=== PATIENT | female | born 1980 | race African-American/Black ===

== ENCOUNTER 2020-02-26 12:20 | Emergency (ER) | payer OTHER ==
[2020-02-26] MEDS ORDERED: SODIUM CHLORIDE 0.9% 1,000 ML IV STA (12:22)
[2020-02-26 12:24] LABS: Glucose,Whole Blood 128 mg/dL (75-99)
[2020-02-26 12:31] VITALS: RESP 18
--- NOTE | 2020-02-26 12:39 | ED ---
General Adult HPI - General Stated complaint: Seizure Time Seen by Provider: 02/26/20 12:22 Source: patient, EMS, RN notes reviewed, old records reviewed Mode of arrival: EMS Limitations: no limitations - History of Present Illness Initial comments: 40-year-old female history of hypertension presenting with suspected new onset seizure. Patient was found in her car on the side of the road with witnessed seizure activity. There was no reported accident or trauma. Patient was postictal upon EMS arrival. There is no reported history of seizure disorder. Apparently the patient has not been eating or drinking well over the past 24 hours. She's been unable to take her hypertension medication. Patient is alert and oriented 2 with time my initial evaluation. She has no complaints, no headache, no chest pain or dyspnea, no focal numbness or weakness. - Related Data Previous Rx's Medication Instructions Recorded amLODIPine [Norvasc] 5 mg PO DAILY #30 tab 02/26/20 Allergies Allergy/AdvReac Type Severity Reaction Status Date / Time lisinopril Allergy Rash/Hives Verified 02/26/20 12:32 Review of Systems ROS Statement: Those systems with pertinent positive or pertinent negative responses have been documented in the HPI. ROS Other: All systems not noted in ROS Statement are negative. Past Medical History Past Medical History: Hypertension Smoking Status: Never smoker Past Alcohol Use History: Occasional Past Drug Use History: None Reported General Exam Limitations: no limitations General appearance: alert, in no apparent distress Head exam: Present: atraumatic, normocephalic Eye exam: Present: normal appearance, PERRL ENT exam: Present: mucous membranes dry Neck exam: Present: normal inspection. Absent: tenderness, meningismus Respiratory exam: Present: normal lung sounds bilaterally. Absent: respiratory distress, wheezes Cardiovascular Exam: Present: normal rhythm, tachycardia GI/Abdominal exam: Present: soft. Absent: distended, tenderness, guarding, rebound Extremities exam: Present: normal inspection, normal capillary refill. Absent: pedal edema Neurological exam: Present: alert, CN II-XII intact. Absent: oriented X3, motor sensory deficit Psychiatric exam: Present: normal affect, normal mood Skin exam: Present: warm, dry, intact. Absent: cyanosis, diaphoretic Course Vital Signs 02/26/20 02/26/20 02/26/20 12:22 12:31 13:31 Temperature 98.5 F Pulse Rate 129 H 98 Respiratory 18 18 18 Rate Blood Pressure 209/157 188/129 O2 Sat by Pulse 98 98 Oximetry - Reevaluation(s) Reevaluation #1: 02/26/20 14:37 40-year-old female presenting with suspected new onset seizure. Head CT performed, showing chronic ischemic changes no acute process, no intracranial hemorrhage or mass effect. She has a normal CBC, she has a CO2 13 consistent with acidosis likely from seizure. She has an elevated bilirubin at 1.7 and a transaminitis. She states she has had some nausea and vomiting over the past 48 hours rate, she denies abdominal pain. Ultrasound has been ordered these results are pending. She does admit to alcohol consumption although she states she only drinks approximately 2 days weekly. She denies being a daily drinker. Ultrasound is pending, care is signed out to Dr. Valadez at shift change awaiting ultrasound results and reevaluation. Reevaluation #2: 02/26/20 15:06 Patient reevaluated, resting comfortably with no complaints, alert and oriented 3. EKG Findings - EKG Comments: EKG Findings:: EKG: Sinus tachycardia, rate of 124, CO interval 136, QRS duration [address] segment elevation Medical Decision Making - Medical Decision Making 40-year-old female presenting with new onset seizure, hypertension. Patient has not been taking her antihypertensive medications secondary to lack of insurance. Workup reveals a head CT which is negative for intracranial hemorrhage. She has a CO2 of 13 consistent with acidosis secondary to seizure. She has an elevated bilirubin, AST and ALT with no abdominal pain or tenderness. Ultrasound is performed in the emergency department. Given the patient's uncontrolled high blood pressure, new onset seizure would prefer this patient be admitted. She does not want to be admitted. She does not live in town. She is accompanied by her significant other, both are informed of the risks and both wish that the patient be discharged with outpatient follow-up. I will prescribe this patient Norvas for her blood pr essure. They will follow up with her neurologist in their area. She's given seizure precautions, she will not drive. She will monitor her blood pressure at home. Again I prefer this patient be admitted but she refuses admission and wishes to be discharged. - Lab Data Result diagrams: 02/26/20 12:33 02/26/20 12:33 Lab Results 02/26/20 02/26/20 02/26/20 Range/Units 12:22 12:33 12:33 WBC 5.9 (3.8-10.6) k/uL RBC 3.88 (3.80-5.40) m/uL Hgb 12.4 (11.4-16.0) gm/dL Hct 39.9 (34.0-46.0) % MCV 103.0 H (80.0-100.0) fL MCH 32.0 (25.0-35.0) pg MCHC 31.1 (31.0-37.0) g/dL RDW 14.7 (11.5-15.5) % Plt Count 114 L (150-450) k/uL Neutrophils % 63 % Lymphocytes % 27 % Monocytes % 7 % Eosinophils % 1 % Basophils % 1 % Neutrophils # 3.7 (1.3-7.7) k/uL Lymphocytes # 1.6 (1.0-4.8) k/uL Monocytes # 0.4 (0-1.0) k/uL Eosinophils # 0.0 (0-0.7) k/uL Basophils # 0.1 (0-0.2) k/uL Macrocytosis Slight Sodium (137-145) mmol/L Potassium (3.5-5.1) mmol/L Chloride (98-107) mmol/L Carbon Dioxide (22-30) mmol/L Anion Gap mmol/L BUN (7-17) mg/dL Creatinine (0.52-1.04) mg/dL Est GFR (CKD-EPI)AfAm (>60 ml/min/1.73 sqM) Est GFR (CKD-EPI)NonAf (>60 ml/min/1.73 sqM) Glucose (74-99) mg/dL POC Glucose (mg/dL) 128 H (75-99) mg/dL POC Glu Roll Up Machine Operator ID Atilio Kwok Calcium (8.4-10.2) mg/dL Total Bilirubin (0.2-1.3) mg/dL AST (14-36) U/L ALT (4-34) U/L Alkaline Phosphatase (38-126) U/L Total Protein (6.3-8.2) g/dL Albumin (3.5-5.0) g/dL Urine Color Yellow Urine Appearance Clear (Clear) Urine pH 6.0 (5.0-8.0) Ur Specific Casey 1.005 (1.001-1.035) Urine Protein 3+ (Negative) Ur Protein Confirm RELAY WORKER Urine Glucose (UA) Negative (Negative) Urine Ketones 1+ (Negative) Urine Blood Small (Negative) Urine Nitrite Negative (Negative) Urine Bilirubin Negative (Negative) Urine Urobilinogen <2.0 (<2.0) mg/dL Ur Leukocyte Esterase Negative (Negative) Urine RBC 1 (0-5) /hpf Urine WBC 16 H (0-5) /hpf Amorphous Sediment Rare H (None) /hpf Urine Bacteria Many H (None) /hpf Urine Mucus Occasional H (None) /hpf Urine Opiates Screen Not Detected (NotDetected) Ur Oxycodone Screen Not Detected (NotDetected) Urine Methadone Screen Not Detected (NotDetected) Ur Propoxyphene Screen Not Detected (NotDetected) Ur Barbiturates Screen Not Detected (NotDetected) U Tricyclic Antidepress Not Detected (NotDetected) Ur Phencyclidine Scrn Not Detected (NotDetected) Ur Amphetamines Screen Not Detected (NotDetected) U Methamphetamines Scrn Not Detected (NotDetected) U Benzodiazepines Scrn Not Detected (NotDetected) Urine Cocaine Screen Not Detected (NotDetected) U Marijuana (THC) Screen Not Detected (NotDetected) Serum Alcohol mg/dL 02/26/20 Range/Units 12:33 WBC (3.8-10.6) k/uL RBC (3.80-5.40) m/uL Hgb (11.4-16.0) gm/dL Hct (34.0-46.0) % MCV (80.0-100.0) fL MCH (25.0-35.0) pg MCHC (31.0-37.0) g/dL RDW (11.5-15.5) % Plt Count (150-450) k/uL Neutrophils % % Lymphocytes % % Monocytes % % Eosinophils % % Basophils % % Neutrophils # (1.3-7.7) k/uL Lymphocytes # (1.0-4.8) k/uL Monocytes # (0-1.0) k/uL Eosinophils # (0-0.7) k/uL Basophils # (0-0.2) k/uL Macrocytosis Sodium 137 (137-145) mmol/L Potassium 3.7 (3.5-5.1) mmol/L Chloride 101 (98-107) mmol/L Carbon Dioxide 13 L (22-30) mmol/L Anion Gap 23 mmol/L BUN 8 (7-17) mg/dL Creatinine 0.69 (0.52-1.04) mg/dL Est GFR (CKD-EPI)AfAm >90 (>60 ml/min/1.73 sqM) Est GFR (CKD-EPI)NonAf >90 (>60 ml/min/1.73 sqM) Glucose 153 H (74-99) mg/dL POC Glucose (mg/dL) (75-99) mg/dL POC Glu Roll Up Machine Operator ID Calcium 8.1 L (8.4-10.2) mg/dL Total Bilirubin 1.7 H (0.2-1.3) mg/dL AST 197 H (14-36) U/L ALT 47 H (4-34) U/L Alkaline Phosphatase 94 (38-126) U/L Total Protein 8.5 H (6.3-8.2) g/dL Albumin 4.6 (3.5-5.0) g/dL Urine Color Urine Appearance (Clear) Urine pH (5.0-8.0) Ur Specific Casey (1.001-1.035) Urine Protein (Negative) Ur Protein Confirm Urine Glucose (UA) (Negative) Urine Ketones (Negative) Urine Blood (Negative) Urine Nitrite (Negative) Urine Bilirubin (Negative) Urine Urobilinogen (<2.0) mg/dL Ur Leukocyte Esterase (Negative) Urine RBC (0-5) /hpf Urine WBC (0-5) /hpf Amorphous Sediment (None) /hpf Urine Bacteria (None) /hpf Urine Mucus (None) /hpf Urine Opiates Screen (NotDetected) Ur Oxycodone Screen (NotDetected) Urine Methadone Screen (NotDetected) Ur Propoxyphene Screen (NotDetected) Ur Barbiturates Screen (NotDetected) U Tricyclic Antidepress (NotDetected) Ur Phencyclidine Scrn (NotDetected) Ur Amphetamines Screen (NotDetected) U Methamphetamines Scrn (NotDetected) U Benzodiazepines Scrn (NotDetected) Urine Cocaine Screen (NotDetected) U Marijuana (THC) Screen (NotDetected) Serum Alcohol <10 mg/dL Disposition Clinical Impression: New onset seizure, Hyperbilirubinemia, Hypertension Disposition: HOME SELF-CARE Condition: Fair Instructions (If sedation given, give patient instructions): New-Onset Seizure in Adults (ED), Hypertension (ED) Additional Instructions: Please do not drive, please follow up with your primary care physician, please follow up with neurology. Please take medications as prescribed. Prescriptions: amLODIPine [Norvasc] 5 mg PO DAILY #30 tab Is patient prescribed a controlled substance at d/c from ED?: No Referrals: None,Stated [REFERRING] - 1-2 days Nerissa Nichols DO [Primary Care Provider] - 1-2 days Time of Disposition: 15:07
--- NOTE | 2020-02-26 12:58 | CT ---
EXAMINATION TYPE: CT brain wo con DATE OF EXAM: 02/26/2020 COMPARISON: None HISTORY: 40-year-old female Seizure activity TECHNIQUE: Examination was done in axial plane without intravenous contrast. Coronal and sagittal r econstructions performed. CT DLP: 2458.4 mGycm Automated exposure control for dose reduction was used. FINDINGS: There is no evidence of acute intracranial hemorrhage, acute ischemic changes, mass, mass-effect, or extra-axial fluid collection. There is no effacement of cerebral sulci or basal subarachnoid cister ns. There is no hydrocephalus. There is no midline shift. [place]-white matter distinction is preserv ed. Mild patchy white matter hypodensities in both cerebral hemispheres. Paranasal sinuses and mastoid air cells are pneumatized. Orbits and globes are intact. IMPRESSION: Mild patchy burden of chronic small vessel ischemic disease. No acute intracranial abnormality seen.
[2020-02-26] MEDS ORDERED: LABETALOL 5 MG/ML VIAL MDV IVP STA (13:01)
[2020-02-26 13:04] LABS: Basophils # (A) 0.1 k/uL (0-0.2); Basophils % (A) 1 %; Eosinophils % (A) 1 %; HCT 39.9 % (34.0-46.0); HGB 12.4 gm/dL (11.4-16.0); Lymphocytes # (A) 1.6 k/uL (1.0-4.8); Lymphocytes % (A) 27 %; MCHC 31.1 g/dL (31.0-37.0); Macrocytosis Slight; Mean Platelet Volume 10.5; Monocytes # (A) 0.4 k/uL (0-1.0); Monocytes % (A) 7 %; Neutrophils # (A) 3.7 k/uL (1.3-7.7); Neutrophils % (A) 63 %; Platelet Count 114 k/uL (150-450); RBC 3.88 m/uL (3.80-5.40); RDW 14.7 % (11.5-15.5); WBC 5.9 k/uL (3.8-10.6)
[2020-02-26 13:16] LABS: African American GFR (CKD) >90 (>60 ml/min/1.73 sqM); Alcohol <10 mg/dL; Anion Gap 23 mmol/L; Blood Urea Nitrogen 8 mg/dL (7-17); Calcium 8.1 mg/dL (8.4-10.2); Carbon Dioxide 13 mmol/L (22-30); Chloride 101 mmol/L (98-107); Glucose 153 mg/dL (74-99); Non-African American GFR(CKD) >90 (>60 ml/min/1.73 sqM); Sodium 137 mmol/L (137-145); Total Bilirubin 1.7 mg/dL (0.2-1.3)
[2020-02-26 13:25] LABS: Albumin 4.6 g/dL (3.5-5.0); Potassium 3.7 mmol/L (3.5-5.1); Total Protein 8.5 g/dL (6.3-8.2)
[2020-02-26 13:26] LABS: ALT 47 U/L (4-34); AST 197 U/L (14-36); Alkaline Phosphatase 94 U/L (38-126)
[2020-02-26 13:28] LABS: Amorphous Sediment,Urine Rare /hpf; Bacteria,Urine Many /hpf; Mucus,Urine Occasional /hpf; RBC,Urine 1 /hpf (0-5); WBC,Urine 16 /hpf (0-5)
[2020-02-26 13:32] LABS: Amphetamine Screen,Urine Not Detected (NotDetected); Barbiturate Screen,Urine Not Detected (NotDetected); Benzodiazepines Screen,Urine Not Detected (NotDetected); Cocaine Screen,Urine Not Detected (NotDetected); Methadone Screen, Urine Not Detected (NotDetected); Opiate Screen,Urine Not Detected (NotDetected); Oxycodone Screen, Urine Not Detected (NotDetected); Phencyclidine Screen,Urine Not Detected (NotDetected); Tricyclic Antidepressant,Urine Not Detected (NotDetected); Urn Cannabinoid Scrn Not Detected (NotDetected)
[2020-02-26 13:33] LABS: Appearance,Urine Clear (Clear); Color,Urine Yellow
[2020-02-26 13:34] LABS: Glucose,Urine (UA) Negative (Negative); Ketones,Urine 1+ (Negative); Protein,Urine 3+ (Negative); Specific Gravity,Urine 1.005 (1.001-1.035)
[2020-02-26 13:35] LABS: Bilirubin,Urine Negative (Negative); Blood,Urine Small (Negative); Leukocyte Esterase,Urine Negative (Negative); Nitrite,Urine Negative (Negative); Urobilinogen,Urine <2.0 mg/dL (<2.0)
[2020-02-26] MEDS ORDERED: SODIUM CHLORIDE 0.9% 500 ML 500 ML IV ONE (14:37)
[2020-02-26] MEDS ORDERED: amLODIPine 5 MG TAB PO STA (14:37)
--- NOTE | 2020-02-26 15:34 | US ---
EXAMINATION TYPE: US gallbladder DATE OF EXAM: 02/26/2020 COMPARISON: NONE CLINICAL HISTORY: Vomiting, transaminitis. HTN per patient EXAM MEASUREMENTS: Liver Length: 18.1 cm Gallbladder Wall: 0.3 cm CBD: 0.7 cm Right Kidney: 10.8 x 6.1 x 4.4 cm Pancreas: wnl but hyperechoic Liver: mildly enlarged; fatty as is hyperechoic to right renal cortex and attenuated posteriorly Gallbladder: sludge in fundus in LLD and supine positions; wall is upper limits of normal Evidence for sonographic Kwok's sign: no CBD: prominent as is greater than 0.6cm normal size Right Kidney: No hydronephrosis or masses seen IMPRESSION: There is some echogenic bile in the gallbladder. No gallbladder dilation.. No gallstones seen. Intrah epatic bile ducts are not dilated. Common bile duct is 7 mm and could relate to some chronic gallblad kemal dysfunction.
[2020-02-26 15:46] VITALS: BP 179/121; PULSE 101; TEMP 98.1
== END 2020-02-26 15:35 | disposition home or self-care (01) ==
LOC: EC 12:20
DX: R56.9 Unspecified convulsions (principal); I10 Essential (primary) hypertension; E80.6 Other disorders of bilirubin metabolism; I67.82 Cerebral ischemia; R74.0 Nonspecific elevation of levels of transaminase and lactic acid dehydrogenase [LDH]; E87.2 Acidosis; Z91.14 Patient's other noncompliance with medication regimen; Z88.8 Allergy status to other drugs, medicaments and biological substances
CPT/HCPCS: 36415; 70450; 76705; 80053; 80306; 80320; 81001; 85025; 87086; 93005; 96361; 96374; 99285